=== PATIENT | female | born 1985 | race Caucasian/White ===

== ENCOUNTER 2017-11-14 20:03 | Emergency (ER) | payer SELFPAY ==
[~2017-11-14] VITALS: Ht 161.3 cm; Wt 95.0 kg
[~2017-11-14 20:03] MED LIST: AMOXICILLIN500 MG PO; CIPROFLOXACN500 MG PO; METFORMIN1000 MG PO; OCELLA1 TAB PO; TESSALON200 MG PO; ZITHROMAX250 MG PO; ZOFRAN ODT4 MG PO
[2017-11-14 21:32] VITALS: BP 140/80
[2017-11-14] MEDS ORDERED: BACTRIM DS1 TAB PO (21:34)
== END 2017-11-14 21:40 | disposition home or self-care (01) | DRG 605 ==
LOC: ED 20:03
DX: S80.211A Abrasion, right knee, initial encounter (principal); W18.30XA Fall on same level, unspecified, initial encounter

== ENCOUNTER 2019-05-02 | Emergency (ER) | payer SELFPAY ==
[~2019-05-02] MED LIST changes: +BACTRIM DS1 TAB PO
[2019-05-02 12:11] LABS: URINE BILIRUBIN - DIPSTICK NEGATIVE (NEGATIVE); URINE BLOOD DIPSTICK NEGATIVE (NEGATIVE); URINE COLOR YELLOW; URINE GLUCOSE - DIPSTICK NEGATIVE (NEGATIVE); URINE KETONE NEGATIVE (NEGATIVE); URINE LEUK ESTERASE SMALL (NEGATIVE); URINE NITRITE - DIPSTICK NEGATIVE (Negative); URINE PROTEIN - DIPSTICK NEGATIVE (NEG-TRACE); URINE SPECIFIC GRAVITY 1.015; URINE UROBILINOGEN - DIPSTICK 0.2 E.U./dL (0.2)
[2019-05-02 12:13] LABS: URINE BACTERIA FEW hpf; URINE EPITHELIAL CELLS FEW EPI/hpf (0-FEW)
[2019-05-02 12:17] LABS: BARBITURATES NEGATIVE (NEGATIVE); COCAINE POSITIVE (NEGATIVE); METHADONE NEGATIVE (NEGATIVE); TETRAHYDROCANNABIONOL NEGATIVE (NEGATIVE); TRICYLIC ANTIDEPRESSANTS NEGATIVE (NEGATIVE)
[2019-05-02 12:18] LABS: OXCYCODONE NEGATIVE (NEGATIVE)
[2019-05-02] MEDS ORDERED: BACTROBAN TOP (12:57)
== END 2019-05-02 13:14 | disposition home or self-care (01) | DRG 914 ==
DX: S09.90XA Unspecified injury of head, initial encounter (principal); F19.20 Other psychoactive substance dependence, uncomplicated; W20.8XXA Other cause of strike by thrown, projected or falling object, initial encounter